=== PATIENT | male | born 1990 | race Hispanic/Latino ===

== ENCOUNTER 2024-02-08 15:31 | Emergency (ER) | payer SELFPAY ==
--- OUTSIDE RECORDS SUMMARY | 2024-02-08 15:35 | XMS REPORT | Continuity of Care Document ---
Author Name Unknown Address [address] [facility] [address] [place] [address] [facility] thconnect Address [address] [facility] [address] [place] [address] Care Team Providers Care Coke Handling Supervisor Name Role Phone Jania Kumar Primary Care Physician + [phone] Talha Richards MD Attending Clinician [phone] Pob, Adc Lab Main Attending Clinician Jania Leon Attending Clinician [phone] Hiram Murillo MD Attending Clinician [phone] JANIA GONZALEZ Attending Clinician Sanju Ortiz MD Attending Clinician [phone] SANJU VILLALTA Attending Clinician Unavaila SHYLA Bryant Attending Clinician Unavail able 2, Ad[facility] Lab Attending Clinician Unavailable Doctor Unassigned, [place] Attending Clinician U navailable PV_GC_VIRTUAL_PROV Attending Clinician Unavaila ble PV_GC_VIRTUAL_PROV Admitting Clinician Unavaila ble Payers Payer Name Policy Type Policy Number Effective Date Expirati on Date Source [facility] [id number] 2019 00:00:00 Problems Condition Name Condition Details Condition Category Status Onset Date Resolution Date Last Treatment Date Treating Clinician Comments Source No known active problems No known active problems Disease [facility] Allergies, Adverse Reactions, Alerts Allergy Name Allergy Type Status Severity Reaction(s) Onset Date Inactive Date Treating Clinician Comments Source NO KNOWN ALLERGIE S Drug Class Active [facility] Social History Social Habit Start Date Stop Date Quantity Comments Source [facility] Exposure to SARS-CoV-2 (event) 2020-09-01 00:00:00 2020-10-01 15:11:00 Not sure [facility] History of Social function 2020-08-20 00:00:00 2020-08-20 00:00:00 [facility] Tobacco use and exposure 2020-08-20 00:00:00 2020-08-20 00:00:00 Smokeless tobacco non-user [facility] Alcohol intake 2020-08-20 00:00:00 2020-08-20 00:00:00 Current drinker of alcohol (finding) [facility] Alcohol Comment 2020-08-20 00:00:00 2020-08-20 00:00:00 occassionally [facility] Sex Assigned At 1990 00:00:00 1990 00:00:00 [facility] Smoking Status Start Date Stop Date Source Unknown if ever smoked [facility] Never smoked tobacco [facility] Medications Ordered Medication Name Filled Medication Name Start Date Stop Date Current Medication? Ordering Clinician Indication Dosage Frequency Signature (SIG) Comments Components Source metroNIDAZO LE 500 mg tablet 10-10 00:00: 00 10-25 04:59 :00 No [id number] 500mg Take 1 tablet by mouth 4 (four) times daily for 14 days. [facility] tetracyclin e 500 mg capsule 10-10 00:00: 00 10-25 04:59 :00 No [id number] 500mg Take 1 capsule by mouth 4 (four) times daily for 14 days. [facility] Bismuth Subsalicyla te (BISMUTH) 262 mg tablet 10-10 00:00: 00 10-25 04:59 :00 No [id number] 262mg Take 1 tablet by mouth 4 (four) times daily for 14 days. [facility] omeprazole 20 mg capsule 10-10 00:00: 00 10-25 04:59 :00 No [id number] 20mg Take 1 capsule by mouth 2 (two) times daily for 14 days. [facility] iopamidol (ISOVUE 300-500 mL) injection 100 mL 08-29 20:45: 00 08-29 19:40 :00 No [id number] 100mL 100 mL, Intravenou s, ONCE, 1 dose, 08/29/20 at 1545, Routine [facility] omeprazole 20 mg capsule 08-20 00:00: 00 Yes [id number] 20mg Take 1 capsule by mouth daily. [facility] omeprazole 20 mg capsule 07-23 00:00: 00 08-20 00:00 :00 No TAKE ONE (1) CAPSULE(S) BY MOUTH EVERY TWELVE HOURS. [facility] Immunizations Ordered Immunization Name Filled Immunization Name Date Status Comments Source SARS-COV-2 COVID-19 PFIZER VACCINE 2020-09-10 00:00:00 Completed [facility] SARS-COV-2 COVID-19 PFIZER VACCINE 2020-09-10 00:00:00 Completed [facility] SARS-COV-2 COVID-19 PFIZER VACCINE 2020-09-10 00:00:00 Completed [facility] SARS-COV-2 COVID-19 PFIZER VACCINE 2020-09-10 00:00:00 Completed [facility] SARS-COV-2 COVID-19 PFIZER VACCINE 2020-08-20 00:00:00 Completed [facility] SARS-COV-2 COVID-19 PFIZER VACCINE 2020-08-20 00:00:00 Completed [facility] SARS-COV-2 COVID-19 PFIZER VACCINE 2020-08-20 00:00:00 Completed [facility] SARS-COV-2 COVID-19 PFIZER VACCINE 2020-08-20 00:00:00 Completed [facility] SARS-COV-2 COVID-19 PFIZER VACCINE 2020-08-20 00:00:00 Completed [facility] SARS-COV-2 COVID-19 PFIZER VACCINE 2020-08-20 00:00:00 Completed [facility] SARS-COV-2 COVID-19 PFIZER VACCINE Unknown Completed [facility] SARS-COV-2 COVID-19 PFIZER VACCINE Unknown Completed [facility] Vital Signs Vital Name Observation Time Observation Value Comments S ourshekhar Systolic blood pressure 2020-10-01 20:09:00 122 mm[Hg] [facility] Diastolic blood pressure 2020-10-01 20:09:00 81 mm[Hg] [facility] Heart rate 2020-10-01 20:09:00 79 /min Unive [facility] Body temperature 2020-10-01 20:09:00 36.67 Britney [facility] Respiratory rate 2020-10-01 20:09:00 18 /min [facility] Body height 2020-10-01 20:09:00 165.1 cm [facility] Body weight 2020-10-01 20:09:00 104.055 kg [facility] BMI 2020-10-01 20:09:00 38.17 kg/m2 [facility] Oxygen saturation in Arterial blood by Pulse oximetry 2020-10-01 20:09:00 97 /min [facility] Systolic blood pressure 2020-09-25 13:31:00 113 mm[Hg] [facility] Diastolic blood pressure 2020-09-25 13:31:00 78 mm[Hg] [facility] Heart rate 2020-09-25 13:31:00 75 /min Unive [facility] Body temperature 2020-09-25 13:31:00 35.67 Britney [facility] Body height 2020-09-25 13:31:00 165.1 cm [facility] Body weight 2020-09-25 13:31:00 104.373 kg [facility] BMI 2020-09-25 13:31:00 38.29 kg/m2 [facility] Systolic blood pressure 2020-08-20 20:15:00 118 mm[Hg] [facility] Diastolic blood pressure 2020-08-20 20:15:00 76 mm[Hg] [facility] Heart rate 2020-08-20 20:15:00 76 /min Unive [facility] Body temperature 2020-08-20 20:15:00 36.94 Britney [facility] Respiratory rate 2020-08-20 20:15:00 16 /min [facility] Body height 2020-08-20 20:15:00 165.1 cm [facility] Body weight 2020-08-20 20:15:00 105.643 kg [facility] BMI 2020-08-20 20:15:00 38.76 kg/m2 [facility] Oxygen saturation in Arterial blood by Pulse oximetry 2020-08-20 20:15:00 96 /min [place] [facility] Procedures Procedure Date / Time Performed Performing Clinician Source HELICOBACTER PYLORI ANTIGEN, FECAL BY EIA 2020-10-01 21:06:00 Susie Talha [facility] ASSIGNMENT OF BENEFITS 2020-08-20 19:59:10 Docto r Unassigned, [place] [facility] Encounters Start Date/Time End Date/Time Encounter Type Admission Type Attending Clinicians Care Facility Care Department Encounter ID Source 2020-10-09 00:00:00 2020-10-09 00:00:00 Patient Secure [facility] [id number] [id number] [facility] 2020-10-09 00:00:00 2020-10-09 00:00:00 Patient Secure [facility] 1..840.114 350.1.13.10 [id number] [id number] [facility] 2020-10-01 15:53:31 2020-10-01 16:08:31 Bridge Operator Slip Visit Pob, Adc Lab Main Jania Gonzalez [facility] 1..840.114 350.1.13.10 [id number] [id number] [facility] 2020-10-01 15:03:09 2020-10-01 15:41:31 Office [facility] [id number] [id number] [id number] [facility] 2020-10-01 15:30:00 2020-10-01 15:30:00 Outpatient R JANIA GONZALEZ [place] [id number] [facility] 2020-09-25 08:15:37 2020-09-25 08:45:37 Office Visit Talha Richards [facility] [id number] [id number] [facility] 2020-09-25 08:30:00 2020-09-25 08:30:00 Outpatient R SANJU VILLALTA [place] [id number] [facility] 2020-09-10 13:00:00 2020-09-10 13:00:00 Outpatient R SHYLA GUADALUPE [place] [id number] [facility] 2020-09-03 00:00:00 2020-09-03 00:00:00 Patient Secure Msg [facility] [id number] 350.1.13.10 4.2.7.2.686 [id number] [facility] 2020-08-29 14:01:08 2020-08-29 23:59:00 Hospital Encounter Lisa, [facility] [id number] 350.1.13.10 4.2.7.2.686 [id number] [facility] 2020-08-29 00:00:00 2020-08-29 00:00:00 Outpatient R JANIA GONZALEZ [place] [id number] [facility] 2020-08-20 17:40:00 2020-08-20 17:40:00 Outpatient SHYLA MUÑOZ [place] [id number] [facility] 2020-08-20 15:46:41 2020-08-20 16:01:41 Bridge Operator Slip Visit 2, Adc Lab Lisa [facility] [id number] 350.1.13.10 4.2.7.2.686 [id number] [facility] 2020-08-20 15:06:02 2020-08-20 15:40:21 Office Visit Lisa [facility] [id number] 350.1.13.10 [id number] [id number] [facility] 2020-08-20 15:00:00 2020-08-20 15:00:00 Outpatient R LISA [facility] [id number] [facility] 2020-08-20 00:00:00 2020-08-20 00:00:00 Orders Only Doctor Unassigned, [place] [facility] [id number] 350.1.13.10 [id number] [id number] [facility] 2020-06-27 11:13:00 2020-06-27 11:13:00 Outpatient PVH_GC_VIRT UAL_PROV PRIV PRIV [id number] [facility] 2020-06-26 01:51:00 2020-06-26 01:51:00 Outpatient PVH_GC_VIRT UAL_PROV PRIV PRIV [id number] [facility] 2020-06-23 08:29:00 2020-06-23 08:29:00 Outpatient PVH_GC_VIRT UAL_PROV PRIV PRIV [id number] [facility] 2020-06-21 06:33:00 2020-06-21 06:33:00 Outpatient PVH_GC_VIRT UAL_PROV PRIV PRIV [id number] [facility] Medical Results Test Description Test Time Test Comments Results Result Co mments Source [facility], FECAL BY EIA 2020-10-04 02:07:53* Test Item Value Reference Range Interpretation Comme nts H. PYLO Ag (test code = 43826-0) Positive Negative A Performed By: [address] [id number] Director: Jasmin Pereyra MD Lab Interpretation (test code = 24093-6) Abnormal [facility]
[2024-02-08] MEDS ORDERED: NA CHLORIDE 0.9% 1,000 ML ONE (16:12)
[2024-02-08] MEDS ORDERED: MECLIZINE HCL 12.5 MG TAB ONE (16:12)
[2024-02-08] MEDS ORDERED: ONDANSETRON 4 MG/2 ML VIAL ONE (16:12)
[2024-02-08 16:13] LABS: Absolute Basophils 0.1 K/uL (0-0.5); Absolute Eosinophils 0.2 K/uL (0-0.5); Absolute Lymphocytes (CBC) 4.9 K/uL (0.7-4.9); Absolute Monocytes 0.5 K/uL (0.1-1.3); Absolute Neutrophil 3.9 K/uL (1.8-8.0); Basophils % 0.6 % (0-1.3); Eosinophils % 2.5 % (0-4.4); Hematocrit 48.9 % (39.6-49.0); Hemoglobin 17.1 g/dL (13.6-17.9); Lymphocytes % 51.4 % (15.3-44.8); MCH 28.6 pg (27.0-35.0); MCHC 35.1 g/dL (32.0-36.0); MCV 81.6 fL (80-100); MPV 8.1 fL (7.6-11.3); Monocytes % 5.1 % (3.3-12.3); Neutrophils % 40.4 % (41.7-73.7); Nucleated Red Blood Cells % 0.2 % (0-0); Platelets 403 thou/uL (152-406); RBC Red Blood Cell Count 5.99 M/uL (4.33-5.43); Red Cell Distribution Width 13.9 % (12.1-15.2)
[2024-02-08 16:17] LABS: PT Prothrombin Time 11.6 SECONDS (9.4-12.5); PTT, Activated Partial Thromb 32.4 SECONDS (24.3-36.9); Protime INR 1.04
[2024-02-08 16:26] LABS: Albumin 3.9 g/dL (3.4-5.0); Anion Gap 8.3 mEq/L (5.0-15.0); Bilirubin Direct 0.2 mg/dL (0-0.2); Bilirubin Indirect, Calculated 0.7 mg/dL (0.2-0.8); Bilirubin Total 0.9 mg/dL (0.2-1.0); Globulin 3.9 g/dL (2.3-3.5); Magnesium 2.1 mg/dL (1.6-2.4); Potassium 3.3 mEq/L (3.5-5.1); Protein, Total 7.8 g/dL (6.4-8.2); Troponin High Sensitivity 4.4 pg/mL (<58.9)
--- NOTE | 2024-02-08 17:30 | RAD REPORT ---
EXAM: CTA of the chest, abdomen and pelvis HISTORY: Chest and abdominal pain COMPARISON: None TECHNIQUE: Multiple contiguous axial images were obtained a CTA of the chest and abdomen with contras t per aortic dissection protocol. Sagittal and coronal 3-D MIP reformats were performed. 100 cc Isovue-370 administered intravenously.Automated exposure control, adjustment of the mA and kV accordi ng to the patient size, and iterative reconstruction. Unless otherwise specified, incidental findings do not require dedicated imaging follow-up. FINDINGS: The opacification of portions of the aorta mildly suboptimal secondary to machine malfunction. An aortic dissection not seen. No aortic aneurysm Celiac, SMA and ALEXSANDRA do not demonstrate a significant abnormality. Renal arteries do not demonstrate a significant abnormality. Lungs are clear. 1.3 x 1 cm lymph node anterior mediastinum. Fatty liver. 2.5 cm left adrenal mass Hounsfield unit 53. 2.1 cm round soft tissue structure within the lesser sac adjacent to the pancreas and stomach. The spleen, pancreas, kidneys and right adrenal gland unremarkable Normal appendix. No evidence of diverticulitis. The right diaphragmatic kristian is prominent IMPRESSION: No evidence of an aortic dissection 2.1 cm soft tissue structure within the lesser sac probably a lymph node. It is recommended that tono ent have a PET scan to determine if there is abnormal uptake to suggest neoplasm. 1.3 x 1 cm mediastinal lymph node can be evaluated on the PET scan. Prominence of the right diaphragmatic kristian may be a normal finding for this patient. A subtle mass ca n also have this appearance. This also can be evaluated on the PET scan. 2.5 cm left adrenal mass. This probably is an adenoma. This can be monitored on the PET scan.
--- NOTE | 2024-02-08 17:32 | RAD REPORT ---
EXAM: CT brain without contrast HISTORY: Dizziness COMPARISON: None TECHNIQUE: Multiple contiguous axial images were obtained and a CT of the brain without contrast.. Sagittal and coronal reconstruction performed. Automated exposure control, adjustment of the mA and/or kV according to patient size, and/or iterative reconstruction. Unless otherwise specified, incidental f indings do not require dedicated imaging follow-up FINDINGS: An intracranial bleed is not seen Ventricles are normal caliber No extra-axial fluid collection noted No significant hypodensity within the brain 3 cm soft tissue structure is present within the sphenoid sinus. IMPRESSION: No acute intracranial abnormality noted. 3 cm soft tissue structure within the sphenoid sinus may represent a mucous retention cyst, mucocele or other mass. It is recommended that patient have a nonemergent MRI with contrast for further evaluation. If the patient continues to have symptoms to suggest an acute intracranial abnormality then MRI of th e brain would be recommended.
--- NOTE | 2024-02-08 17:34 | RAD REPORT ---
Procedure: Chest Single View HISTORY: Cough COMPARISON: none FINDINGS: The lungs appear clear of acute infiltrate. No significant pleural effusion noted. The heart is normal size. IMPRESSION: No acute abnormality is displayed.
--- NOTE | 2024-02-08 17:49 | ER ---
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 patient reports recovering from a cold a few days ago as well. Coronavirus screen: At this time, the client does not indicate any symptoms associated with coronavirus-19. Ebola Screen: No symptoms or risks identified at this time. Initial Sepsis Screen: Does the patient meet any 2 criteria? Yes Does the patient have a suspected source of infection? No. Patient's initial sepsis screen is negative. Risk Assessment: Do you want to hurt yourself or someone else? Patient reports no desire to harm self or others. Onset of symptoms is unknown. 15:44 Method Of Arrival: Ambulatory ap3 15:44 Acuity: SHANNAN 2 ap3 Triage Assessment: 15:46 General: Appears ill, Behavior is calm, cooperative, appropriate for age. Pain: Denies ap3 pain. EENT: Reports blurred vision. Neuro: Level of Consciousness is awake, alert, obeys commands, Oriented to person, place, time, situation, Appropriate for age Reports dizziness. Cardiovascular: Patient's skin is warm and dry. Respiratory: Airway is patent Respiratory effort is even, unlabored, Respiratory pattern is regular, symmetrical. Derm: Skin is diaphoretic. Historical: - Allergies: 15:46 No Known Allergies; ap3 - Home Meds: 15:46 None [Active]; ap3 - PMHx: 15:46 None; ap3 - Immunization history:: Adult Immunizations unknown. - Infectious Disease History:: Denies. - Social history:: Smoking status: unknown. - Family history:: not pertinent. - Hospitalizations: : No recent hospitalization is reported. Screenin:48 Abuse screen: Denies threats or abuse. Nutritional screening: No deficits noted. ap3 Tuberculosis screening: No symptoms or risk factors identified. 16:47 [facility] ED Fall Risk Assessment (Adult) History of falling in the last 3 months, ko1 including since admission No falls in past 3 months (0 pts) Confusion or Disorientation No (0 pts) Intoxicated or Sedated No (0 pts) Impaired Gait No (0 pts) Mobility Assist Device Used No (0 pt) Altered Elimination No (0 pt) Score/Fall Risk Level 0 - 2 = Low Risk Oriented to surroundings, Maintained a safe environment, Educated pt \\T\\ family on fall prevention, incl call for assistance when getting out of bed, Assessed \\T\\ reinforced patient's understanding of fall precautions, Provided non-skid footwear. Assessment: 16:15 General: Appears in no apparent distress. comfortable, Behavior is calm, cooperative, cm10 appropriate for age. Neuro: No deficits noted. Level of Consciousness is awake, alert, obeys commands, Oriented to person, place, time, situation, Appropriate for age Reports dizziness, headache. Respiratory: No deficits noted. Airway is patent Respiratory effort is even, unlabored, Respiratory pattern is regular, symmetrical. Derm: No deficits noted. Skin is intact, is healthy with good turgor, Skin is pink, warm \\T\\ dry. Musculoskeletal: No deficits noted. Range of motion: intact in all extremities. 18:19 Reassessment: Patient appears in no apparent distress at this time. Patient and/or cm10 family updated on plan of care and expected duration. Pain level reassessed. Patient is alert, oriented x 3, equal unlabored respirations, skin warm/dry/pink. Vital Signs: 15:44 BP 140 / 93; Pulse 73; Resp 19; Temp 97.5(O); Pulse Ox 100% on R/A; Weight 108.86 kg; ap3 Height 5 ft. 6 in. ; 16:47 BP 131 / 86; Pulse 63; Resp 17; Pulse Ox 97% on R/A; ko1 17:34 BP 123 / 96; Pulse 74; cm10 18:00 BP 127 / 92; Pulse 81; Resp 19; Pulse Ox 97% on R/A; cm10 19:00 BP 122 / 89; Pulse 59; Resp 12; Pulse Ox 97% on R/A; cm10 20:29 BP 120 / 82; Pulse 66; Resp 16; Pulse Ox 100% on R/A; cm10 15:44 Body Mass Index 38.74 (108.86 kg, 167.64 cm) ap3 ED Course: 15:32 Patient arrived in ED. ra3 15:36 Magno Tapia MD is Attending Physician. rn 15:46 Triage completed. ap3 15:47 Patient has correct armband on for positive identification. Placed in gown. Bed in low ap3 position. Call light in reach. Client placed on continuous cardiac and pulse oximetry monitoring. NIBP monitoring applied. engine monitor on. Pulse ox on. NIBP on. Door closed. Noise minimized. 15:48 Arm band placed on right wrist. ap3 15:53 Petra Ledesma, BRIELLE is Primary Nurse. cm10 15:54 Initial lab(s) drawn, by me, sent to lab. EKG done, by ED staff, reviewed by Magno Tapia MD. Inserted saline lock: 18 gauge in right forearm, using aseptic technique. Blood collected. Flushed with 10 mL NS. 16:08 Chest Single View XRAY In Process Unspecified. EDMS 16:46 CT Head Brain wo Cont In Process Unspecified. EDMS 16:46 CT Aorta for Dissection In Process Unspecified. EDMS 16:47 Provided Education on: labs. ko1 16:47 No provider procedures requiring assistance completed. ko1 17:47 Prince Newman MD is Hospitalizing Provider. rn 18:38 initiated transfer to [facility]. bd 18:57 pt accepted in transfer to [facility] 10 c rm [address] Pat admin approval given bd by Chelle Pelayo 19:14 Report given to BRIELLE Wright at [facility]. Pt going to 10C RM 1052. cm10 20:29 Patient transferred, IV remains in place. cm10 Administered Medications: 16:19 Drug: NS 0.9% IV 1000 ml IV at 1000 ml once; to be given as a bolus over 60 minutes cm10 Route: IV; Rate: 1000 ml; Site: right forearm; 17:57 Follow up: Response: No adverse reaction; IV Status: Completed infusion; IV Intake: cm10 1000ml 16:19 Drug: Meclizine PO 50 mg PO once Route: PO; cm10 17:57 Follow up: Response: No adverse reaction cm10 16:19 Drug: Ondansetron IVP 4 mg IVP once; over 2 minutes Route: IVP; Site: right forearm; cm10 16:34 Follow up: Response: No adverse reaction ko1 19:22 Drug: Acetaminophen PO 650 mg PO once Route: PO; cm10 20:20 Follow up: Response: No adverse reaction cm10 Medication: 16:47 VIS not applicable for this client. ko1 Intake: 17:57 IV: 1000ml; Total: 1000ml. cm10 Outcome: 17:49 Decision to Hospitalize by Provider. rn 18:24 ER care complete, transfer ordered by . cole 20:29 Transferred by ground EMS [place] . to [facility], cm10 Transfer form completed. 20:29 Condition: good 20:29 Instructed on the need for transfer, 20:30 Patient left the ED. cm10 Signatures: Dispatcher [employer] EDMS Deyanira Gill Corey, MD MD cha Nieto, Roman, MD MD rn Prokisch, Amanda RN RN ap3 Suad Singletary RN RN ko1 Petra Ledesma RN RN cm10 Indira Banda ra3 Corrections: (The following items were deleted from the chart) 19:23 09:00 BP 122 / 89; Pulse 59bpm; Resp 12bpm; Pulse Ox 97% RA; cm10 cm10
--- NOTE | 2024-02-08 17:49 | EDPHYS ---
Physician Documentation [facility] Name: Vipul Graff Age: 33 yrs Sex: Male : 1990 Arrival Date: 02/08/2024 Time: 15:31 Bed 7 Private MD: ED Physician Magno Tapia HPI: 02/07 16:59 This 33 yrs old Male presents to ER via Ambulatory with complaints of rn Dizziness. 16:59 The patient presents with dizziness, generalized weakness, lightheadedness. Onset: The rn symptoms/episode began/occurred this morning. Modifying factors: The symptoms are alleviated by nothing, the symptoms are aggravated by movement of head, standing up, changing position. Severity of symptoms: At their worst the symptoms were mild in the emergency department the symptoms are unchanged. The patient has not experienced similar symptoms in the past. Patient reports feeling ill last week with flulike symptoms, got better without any treatment. Was fine and last known normal was 7 AM, took a nap and when he woke up felt dizzy, worse with change in head position and standing up. Associated with nausea. No focal weakness or numbness. No chest pain or shortness of breath. No abdominal pain or back pain.. Historical: - Allergies: 15:46 No Known Allergies; ap3 - Home Meds: 15:46 None [Active]; ap3 - PMHx: 15:46 None; ap3 - Immunization history:: Adult Immunizations unknown. - Infectious Disease History:: Denies. - Social history:: Smoking status: unknown. - Family history:: not pertinent. - Hospitalizations: : No recent hospitalization is reported. ROS: 16:59 Constitutional: Negative for fever, chills, and weight loss, Neck: Negative for injury, rn pain, and swelling, Cardiovascular: Negative for chest pain, palpitations, and edema, Respiratory: Negative for shortness of breath, cough, wheezing, and pleuritic chest pain, Abdomen/GI: Negative for abdominal pain, vomiting, diarrhea, and constipation, MS/Extremity: Negative for injury and deformity, Skin: Negative for injury, rash, and discoloration, Neuro: Negative for headache, numbness, tingling, and seizure, Exam: 16:59 Constitutional: This is a well developed, well nourished patient who is awake, alert, rn and in no acute distress. Eyes: Pupils equal round and reactive to light, extra-ocular motions intact. Lids and lashes normal. Conjunctiva and sclera are non-icteric and not injected. Cornea within normal limits. Periorbital areas with no swelling, redness, or edema. ENT: Dry mucous membranes Neck: No meningismus Cardiovascular: Regular rate and rhythm. No pulse deficits. Respiratory: No increased work of breathing, no retractions or nasal flaring. Abdomen/GI: Soft, non-tender Skin: No rash or petechia MS/ Extremity: Pulses equal, no cyanosis. Neuro: Awake and alert, GCS 15, oriented to person, place, time, and situation. Cranial nerves II-XII grossly intact. Motor strength 5/5 in all extremities. Sensory grossly intact. Cerebellar exam normal. Normal gait. 17:56 ECG was reviewed by the Attending Physician. rn Vital Signs: 15:44 BP 140 / 93; Pulse 73; Resp 19; Temp 97.5(O); Pulse Ox 100% on R/A; Weight 108.86 kg; ap3 Height 5 ft. 6 in. ; 16:47 BP 131 / 86; Pulse 63; Resp 17; Pulse Ox 97% on R/A; ko1 17:34 BP 123 / 96; Pulse 74; cm10 18:00 BP 127 / 92; Pulse 81; Resp 19; Pulse Ox 97% on R/A; cm10 19:00 BP 122 / 89; Pulse 59; Resp 12; Pulse Ox 97% on R/A; cm10 20:29 BP 120 / 82; Pulse 66; Resp 16; Pulse Ox 100% on R/A; cm10 15:44 Body Mass Index 38.74 (108.86 kg, 167.64 cm) ap3 MDM: 15:36 Medical Screening Exam initiated rn 17:44 Differential diagnosis: generalized weakness, hypovolemia, idiopathic dizziness, rn vertigo, Adrenal adenoma, abnormality of electrolytes renin angiotensin and aldosterone system. Data reviewed: vital signs, nurses notes, lab test result(s), radiologic studies, CT scan, plain films, and as a result, I will admit patient. Consideration of Admission/Observation Patient was admitted/placed on observation. Escalation of care including admission/observation considered. Counseling: I had a detailed discussion with the patient and/or guardian regarding the historical points, exam findings, and any diagnostic results supporting the discharge/admit diagnosis, lab results, radiology results, the need for further work-up and treatment in the hospital. Response to treatment: the patient's symptoms have mildly improved after treatment, and as a result, I will admit patient. 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 Given this finding with hypertension, hypokalemia, dizziness and diaphoresis with syncope, decision made for admission to hospitalist service for further workup.. 12 15:47 Order name: Basic Metabolic Panel; Complete Time: 16:56 rn 1204 15:47 Order name: CBC with Diff; Complete Time: 16:56 rn 1204 15:47 Order name: Hepatic Function; Complete Time: 16:56 rn 1204 15:47 Order name: Magnesium; Complete Time: 16:56 rn 1204 15:47 Order name: Protime (+inr); Complete Time: 16:56 rn 1204 15:47 Order name: Ptt, Activated; Complete Time: 16:56 rn 04 15:47 Order name: Troponin High Sensitivity; Complete Time: 16:56 rn 1204 15:47 Order name: Urinalysis w/ reflexes; Complete Time: 18:08 rn 1204 15:47 Order name: CT Head Brain wo Cont; Complete Time: 17:36 rn 1204 15:47 Order name: Chest Single View XRAY; Complete Time: 17:36 rn 1204 15:47 Order name: CT Aorta for Dissection; Complete Time: 17:32 rn 1204 15:47 Order name: Cardiac monitoring; Complete Time: 15:47 rn 04 15:47 Order name: EKG - Nurse/Tech; Complete Time: 15:56 rn 1204 15:47 Order name: IV Saline Lock; Complete Time: 15:56 rn 1204 15:47 Order name: Labs collected and sent; Complete Time: 15:56 rn 1204 15:47 Order name: NPO; Complete Time: 15:47 rn 1204 15:47 Order name: O2 Per Protocol; Complete Time: 15:47 rn 04 15:47 Order name: O2 Sat Monitoring; Complete Time: 15:47 rn EC:56 Rate is 69 beats/min. Rhythm is regular. QRS is positive in lead aVF and negative in rn lead I. FL interval is normal. QRS interval is normal. QT interval is normal. No Q waves. T waves are Normal. No ST changes noted. Clinical impression: NSR w/ Non-specific ST/T Changes. Interpreted by me. Reviewed by me. Administered Medications: 16:19 Drug: NS 0.9% IV 1000 ml IV at 1000 ml once; to be given as a bolus over 60 minutes cm10 Route: IV; Rate: 1000 ml; Site: right forearm; 17:57 Follow up: Response: No adverse reaction; IV Status: Completed infusion; IV Intake: cm10 1000ml 16:19 Drug: Meclizine PO 50 mg PO once Route: PO; cm10 17:57 Follow up: Response: No adverse reaction cm10 16:19 Drug: Ondansetron IVP 4 mg IVP once; over 2 minutes Route: IVP; Site: right forearm; cm10 16:34 Follow up: Response: No adverse reaction ko1 19:22 Drug: Acetaminophen PO 650 mg PO once Route: PO; cm10 20:20 Follow up: Response: No adverse reaction cm10 Disposition Summary: 02/08/24 18:24 Transfer Ordered Notes: Transfer Location: [facility] cole Reason: Higher level of care cole Condition: Stable(02/08/24 18:24) cole Problem: new(02/08/24 18:24) cole Symptoms: have improved(02/08/24 18:24) cole Accepting Physician: [facility](02/08/24 20:30) cm10 Diagnosis - Syncope Near [facility] - Dizziness and giddiness(02/08/24 18:24) cole - 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 EDMS EDMS 15:47 15:47 CBC+H.LAB.BRZ ordered. EDMS EDMS 15:47 15:47 HEPATIC FUNCTION+C.LAB.BRZ ordered. EDMS EDMS 15:47 15:47 MAGNESIUM+C.LAB.BRZ ordered. EDMS EDMS 15:47 15:47 PROTIME (+INR)+COAG.LAB.BRZ ordered. EDMS EDMS 15:47 15:47 PTT, ACTIVATED+COAG.LAB.BRZ ordered. EDMS EDMS 15:47 15:47 Troponin High Sensitivity+C.LAB.BRZ ordered. EDMS EDMS 15:47 15:47 Urinalysis+U.LAB.BRZ ordered. EDMS EDMS 15:47 15:47 Head Brain Wo Cont+CT.RAD.BRZ ordered. EDMS EDMS 15:47 15:47 Chest Single View+RAD.RAD.BRZ ordered. EDMS EDMS 15:48 15:48 Angio Aorta For Dissection+CT.RAD.BRZ ordered. EDMS EDMS 18:19 17:49 Observation rn cole 18:19 17:49 [place] rn cole 18:19 17:49 Telemetry/MedSurg (observation) rn cole 18:19 17:49 Stable rn cole 18:19 17:49 new rn cole 18:19 17:49 have improved rn cole 18:19 17:49 Standard rn cole 18:19 17:49 rn cole 18:19 17:49 Syncope rn cole 18:19 17:49 Adrenal mass rn cole 18:19 17:49 Dizziness and giddiness rn cole 20:30 18:24 [facility] cole cm10
[2024-02-08 18:01] LABS: Urine Bilirubin NEGATIVE (Negative); Urine Clarity Clear (Clear); Urine Color Colorless (Yellow); Urine Glucose NEGATIVE (Negative)
[2024-02-08 18:02] LABS: Urine Blood Negative (Negative); Urine Ketones NEGATIVE (Negative); Urine Microscopic Reflex YN NO UMIC; Urine Nitrite NEGATIVE (Negative); Urine Protein NEGATIVE (Negative); Urine Urobilinogen Normal (Normal); Urine pH 6.5 (5.0-7.0)
[2024-02-08 18:03] LABS: Specific Gravity > 1.030 (1.005-1.030)
[2024-02-08] MEDS ORDERED: ACETAMINOPHEN 325 MG TABLET ONE (19:14)
[2024-02-09 03:58] VITALS: TEMP 97.5
[2024-02-09 04:17] VITALS: BP 120/82; O2SAT 100
== END 2024-02-08 20:30 | disposition short-term general hospital (02) ==
LOC: ER 15:31
DX: R55 Syncope and collapse (principal); R53.1 Weakness; E27.8 Other specified disorders of adrenal gland; R93.89 Abnormal findings on diagnostic imaging of other specified body structures
CPT/HCPCS: 36415; 70450; 71045; 71275; 74175; 80048; 80076; 81003; 83735; 84484; 85025; 85610; 85730; 96361; 96374; 99285; J2405; J7030; J8597; Q9967